=== PATIENT | male | born 1990 | race American Indian/Alaskan Native ===

== ENCOUNTER 2019-03-26 15:32 | Inpatient (IN) | payer MEDICAID, MEDICARE ==
[~2019-03-26] VITALS: Ht 182.9 cm; Wt 99.0 kg
[~2019-03-26 15:32] MED LIST: DOXY100C PO; PHEN-922 PO
[2019-03-26 18:07] LABS: BASOPHILS % (AUTO) 0.4 % (0.0-2.0); EOSINOPHILS % (AUTO) 1.6 % (1.0-6.0); HEMATOCRIT 40.9 % (41-53); HEMOGLOBIN 13.5 g/dL (13.5-17.5); LYMPHOCYTES # (AUTO) 1.8 K/uL (1.0-4.8); LYMPHOCYTES % (AUTO) 23.2 % (22.0-44.0); MEAN CORPUSCULAR VOLUME 88 fL (80-100); MONOCYTES # (AUTO) 0.7 K/uL (0.1-1.0); MONOCYTES % (AUTO) 9.5 % (2.0-9.0); NEUTROPHILS # (AUTO) 5.1 K/uL (1.8-7.7); NEUTROPHILS % (AUTO) 65.3 % (40.0-70.0); PLATELET COUNT (AUTO) 310 K/uL (150-450); RED BLOOD CELL COUNT(AUTO) 4.66 MIL/uL (4.50-5.90)
[2019-03-26 18:24] LABS: ANION GAP 8 mmol/L (8-16); CARBON DIOXIDE 32 mmol/L (22-29); CHLORIDE 104 mmol/L (98-107); GLOMERULAR FILTR. RATE CALC > 60 mL/min (>60); GLUCOSE,RANDOM 57 mg/dL (70-110); POTASSIUM 3.6 mmol/L (3.5-5.1); SODIUM SERUM 144 mmol/L (136-145); UREA NITROGEN, BLOOD 11 mg/dL (7-18)
[2019-03-26 18:36] LABS: ALANINE AMINOTRANSFERASE 39 U/L (12-78); ALBUMIN 4.2 g/dL (3.4-5.0); ALKALINE PHOSPHATASE 103 U/L (46-116); ASPARTATE AMINOTRANSFERASE 41 U/L (15-37); BILIRUBIN,TOTAL 0.9 mg/dL (0.1-1.0); TOTAL PROTEIN, SERUM 8.1 g/dL (6.4-8.2)
[2019-03-26 19:21] LABS: AMPHET/METH SCREEN,URINE NEGATIVE (NEGATIVE); BARBITURATE SCREEN, URINE NEGATIVE (NEGATIVE); BENZODIAZEPINES SCREEN,URINE NEGATIVE (NEGATIVE); CANNABINOID SCREEN,URINE NEGATIVE (NEGATIVE); COCAINE SCREEN,URINE NEGATIVE (NEGATIVE); METHADONE SCREEN, URINE NEGATIVE (NEGATIVE); OPIATE SCREEN,URINE NEGATIVE (NEGATIVE)
[2019-03-26 19:24] LABS: PHENCYCLIDINE SCREEN,URINE NEGATIVE (NEGATIVE)
[2019-03-26] MEDS ORDERED: HALOPERIDOL 5 MG TABLET PO PRN (20:30)
[2019-03-26] MEDS ORDERED: ZOLPIDEM TARTRATE 10 MG TABLET PO PRN (20:30)
[2019-03-26 21:56] VITALS: BP 148/95
[2019-03-27] MEDS ORDERED: DiphenhydrAMINE HCL 50 MG/ML VIAL IM ONE (09:30)
[2019-03-27] MEDS ORDERED: LORazepam 2 MG/ML VIAL IM ONE (09:30)
[2019-03-27] MEDS ORDERED: HALOPERIDOL LACTATE 5 MG/ML VIAL IM ONE (09:30)
[2019-03-27] MEDS ORDERED: MAGNESIUM HYDROXIDE SUSPENSION 30 ML UDCUP PO PRN (10:45)
[2019-03-27] MEDS ORDERED: PETROLATUM,WHITE 28 GM JELLY TP PRN (10:45)
[2019-03-27] MEDS ORDERED: NICOTINE 14 MG/24 HOUR PATCH TD PRN (10:45)
[2019-03-27] MEDS ORDERED: IBUPROFEN 400 MG TABLET PO PRN (10:45)
[2019-03-27] MEDS ORDERED: ONDANSETRON HCL 4 MG TABLET PO PRN (10:45)
[2019-03-27] MEDS ORDERED: ALBUTEROL SULFATE HFA 90 MCG/PUFF 8 GM INHALER IH PRN (10:45)
[2019-03-27] MEDS ORDERED: CloNIDine HCL 0.1 MG TABLET PO PRN (10:45)
[2019-03-27] MEDS ORDERED: ACETAMINOPHEN 325 MG TABLET PO PRN (10:45)
[2019-03-27] MEDS ORDERED: GuaiFENesin/D-METHORPHAN [SUGAR-FREE] 200-20MG/10 ML SYRUP UDCUP PO PRN (10:45)
[2019-03-27] MEDS ORDERED: MAG HYDROX/AL HYDROX/SIMETH ES 30 ML SUSPENSION UDCUP PO PRN (10:45)
[2019-03-27] MEDS ORDERED: DOCUSATE SODIUM 100 MG CAPSULE PO PRN (10:45)
[2019-03-27] MEDS ORDERED: LOPERAMIDE HCL 2 MG CAPSULE PO PRN (10:45)
[2019-03-27 16:17] VITALS: BP 134/78
[2019-03-27] MEDS: QUEtiapine FUMARATE 100 MG TABLET PO SCH (20:42)
[2019-03-28] MEDS: LORazepam 2 MG TABLET PO PRN ×2 (08:19→17:28)
[2019-03-28] MEDS: QUEtiapine FUMARATE 100 MG TABLET PO SCH ×2 (08:19→20:31)
[2019-03-28 16:22] VITALS: BP 103/66
[2019-03-29 08:00] VITALS: BP 125/71
[2019-03-29] MEDS: QUEtiapine FUMARATE 100 MG TABLET PO SCH (08:07)
[2019-03-29] MEDS ORDERED: QUET100T33 PO (13:31)
== END 2019-03-29 15:45 | disposition home or self-care (01) | DRG 885 ==
LOC: EMS 15:35 → 3EC 21:00
DX: F25.0 Schizoaffective disorder, bipolar type (principal); F17.210 Nicotine dependence, cigarettes, uncomplicated; J30.2 Other seasonal allergic rhinitis; L30.9 Dermatitis, unspecified; Z79.899 Other long term (current) drug therapy; Z91.14 Patient's other noncompliance with medication regimen
CPT/HCPCS: G0480; J1200; J1630; J2060